=== PATIENT | female | born 1955 | race Caucasian/White ===

== ENCOUNTER → 2017-09-29 | Outpatient (CLI) | payer OTHER | LOC: M.RAD 08:27 | DX: M47.892 Other spondylosis, cervical region (principal) ==

== ENCOUNTER → 2018-05-21 | Outpatient (CLI) | payer OTHER | LOC: M.ULTRA 07:16 | DX: R10.12 Left upper quadrant pain (principal); F32.9 Major depressive disorder, single episode, unspecified ==